=== PATIENT | female | born 1960 | race Caucasian/White ===

== ENCOUNTER 2020-11-10 15:49 | Emergency (ER) | payer SELFPAY ==
[2020-11-10] MEDS ORDERED: HYDROCODONE/ACETAMINOPHEN 5-325 MG TABLET PO ONE (18:28)
--- NOTE | 2020-11-10 19:02 | RADIOLOGY REPORT (SQ) ---
EXAM DESCRIPTION: ANKLE RIGHT COMPLETE IMAGES COMPLETED DATE/TIME: 11/10/2020 6:50 pm REASON FOR STUDY: injury COMPARISON: None. NUMBER OF VIEWS: Three views. TECHNIQUE: AP, lateral, and oblique radiographic images acquired of the right ankle. LIMITATIONS: None. FINDINGS: MINERALIZATION: Normal. BONES: No fracture or dislocation. Posterior and plantar calcaneal spurs. JOINTS: No effusions. SOFT TISSUES: No soft tissue swelling. No foreign body. OTHER: No other significant finding. IMPRESSION: Calcaneal spurs. No acute finding. TECHNICAL DOCUMENTATION: JOB ID: [id number] 2010 [employer]- All Rights Reserved Reading location - IP/workstation name: [email or web address]
--- NOTE | 2020-11-10 19:04 | RADIOLOGY REPORT (SQ) ---
EXAM DESCRIPTION: KNEE RIGHT 4 VIEWS IMAGES COMPLETED DATE/TIME: 11/10/2020 6:50 pm REASON FOR STUDY: injury COMPARISON: None. NUMBER OF VIEWS: Four views. TECHNIQUE: AP, lateral, and both oblique radiographic images acquired of the right knee. LIMITATIONS: None. FINDINGS: MINERALIZATION: Normal. BONES: No acute fracture or dislocation. No worrisome bone lesions. JOINT: Small posterior patellar spurs are present. No significant joint effusion. SOFT TISSUES: No soft tissue swelling. No radio-opaque foreign body. OTHER: No other significant finding. IMPRESSION: Mild patellofemoral degenerative joint changes. No acute finding. TECHNICAL DOCUMENTATION: JOB ID: [id number] 2010 [employer]- All Rights Reserved Reading location - IP/workstation name: [email or web address]
[2020-11-10 19:15] VITALS: BP 122/70
[2020-11-10] MEDS ORDERED: HYDROCODONE/ACETAMINOPHEN 5-325 MG (6 TAB/ER DISP) PO PRN (19:19)
--- NOTE | 2020-11-10 19:19 | ER Document Report ---
HPI - HPI Patient complains to provider of: Fall, right knee right ankle injury Time Seen by Provider: 11/10/20 18:21 Pain Level: 3 Context: 60-year-old female past medical history significant for ataxia, Mnire's, hypertension, diabetes, CHF, coronary artery disease, diverticulitis, DJD, DDD presents to the emergency room after a trip and fall off her back porch injuring her right knee and right ankle states happened earlier today. Denies any head trauma head injury. No loss consciousness. No history of previous trauma or injury to her ankle or knee. States unable to walk secondary to pain. Associated Symptoms: None Exacerbated by: Movement Relieved by: Denies Similar symptoms previously: No Recently seen / treated by doctor: No - ROS Systems Reviewed and Negative: Yes All other systems reviewed and negative - CONSTITUTIONAL Constitutional: DENIES: Fever, Chills - NEURO Neurology: DENIES: Headache, Weakness - REPRODUCTIVE Reproductive: DENIES: : - MUSCULOSKELETAL Musculoskeletal: REPORTS: Extremity pain. DENIES: Back Pain - DERM Skin Color: Normal Skin Problems: None Past Medical History - General Information source: Patient - Social History Smoking Status: Never Smoker Frequency of alcohol use: None Drug Abuse: None Family History: Reviewed & Not Pertinent Patient has homicidal ideation: No Vertical Provider Document - CONSTITUTIONAL Agree With Documented VS: Yes Exam Limitations: No Limitations General Appearance: Mild Distress - INFECTION CONTROL TRAVEL OUTSIDE OF THE [place] IN LAST 30 DAYS: No - HEENT HEENT: Atraumatic, Normocephalic - NECK Neck: Normal Inspection, Supple, Thyroid Normal - RESPIRATORY Respiratory: Breath Sounds Normal, No Respiratory Distress, Chest Non-Tender - CARDIOVASCULAR Cardiovascular: Regular Rate, Regular Rhythm, No Murmur - MUSCULOSKELETAL/EXTREMETIES Musculoskeletal/Extremeties: Tender - Tenderness on palpation to the right arreola lla. No ballottement, no obvious effusion noted. Patient with painful range of motion with flexion, and extension to the right knee. Negative anterior posterior draw. Negative Lexi's, negative Shahrzad's. Notes: Right ankle tenderness on palpation to the lateral and medial malleus. Painful range of motion with flexion, extension, eversion, inversion to the right ankle. Moderate swelling, no obvious deformity palpated. - NEURO Level of Consciousness: Awake, Alert, Appropriate Motor/Sensory: No Motor Deficit, No Sensory Deficit Notes: Positive right pedal pulse. Capillary refill less than 3 seconds. Gait not tested secondary to pain. - DERM Integumentary: Warm, Dry, No Rash Course - Re-evaluation Re-evalutation: 11/10/20 19:14 Patient is resting comfortably with decreased pain. Reviewed x-ray results with patient. Fractures were noted. Right knee x-ray shows degenerative joint disease, right ankle shows heel spurs but no acute fractures. No knee effusion. Counseled to rest, ice, elevate. Weightbearing as tolerated. Outpatient follow-up with orthopedics if not improving in 2 to 3 days. On-call physician was provided. Can take Tylenol and or Motrin as needed for pain. Crutches with crutch training as provided by nursing staff. Ice and Mode wrap applied to right ankle by nursing staff as documented. Patient was given strict return to the emergency room guidelines. Return for any new or worsening symptoms. All questions were answered. Patient verbalized understanding and agrees with plan of care. - Vital Signs Vital signs: Temp Pulse Resp BP Pulse Ox 98.7 F 93 20 125/77 98 11/10/20 15:58 11/10/20 15:58 11/10/20 15:58 11/10/20 15:58 11/10/20 15:58 - Laboratory Results Critical Laboratory Results Reviewed: No Critical Results - Radiology Results Critical Radiology Results Reviewed: No Critical Results Procedures - Immobilization Right Leg Time completed: 19:16 Pre-Proc Neuro Vasc Exam: Normal Immobilizer type: Mode wrap, Crutches Performed by: RN Post-Proc Neuro Vasc Exam: Normal Alignment checked and good: Yes Discharge - Discharge Clinical Impression: Fall Qualifiers: Encounter type: initial encounter Qualified Code(s): W19.XXXA - Unspecified fall, initial encounter Right knee injury Qualifiers: Encounter type: initial encounter Qualified Code(s): S89.91XA - Unspecified injury of right lower leg, initial encounter Right ankle injury Qualifiers: Encounter type: initial encounter Qualified Code(s): S99.911A - Unspecified injury of right ankle, initial encounter Degenerative joint disease of right knee Qualifiers: Osteoarthritis type: unspecified Qualified Code(s): M17.11 - Unilateral primary osteoarthritis, right knee Heel spur Qualifiers: Laterality: right Qualified Code(s): M77.31 - Calcaneal spur, right foot Condition: Stable Disposition: HOME, SELF-CARE Instructions: Use of Crutches ([facility]), Plantar Fasciitis or Heel Spur ([facility]), Sprained Ankle ([facility]), Sprained Knee ([facility]) Additional Instructions: Rest, ice, elevate right knee and right ankle. Use crutches weightbearing as tolerated. Tylenol and or Motrin as needed for pain. Outpatient follow-up with orthopedics if not improving in 2 to 3 days. Return to the emergency room for any new or worsening symptoms. Referrals: BALDO,DAMON [Primary Care Provider] - Follow up as needed JOLYNN BURCH DO [ACTIVE STAFF] - Follow up as needed
== END 2020-11-10 19:30 | disposition home or self-care (01) ==
LOC: ER 15:49
DX: S99.911A Unspecified injury of right ankle, initial encounter (principal); S89.91XA Unspecified injury of right lower leg, initial encounter; W17.89XA Other fall from one level to another, initial encounter; M77.31 Calcaneal spur, right foot; M17.11 Unilateral primary osteoarthritis, right knee; I10 Essential (primary) hypertension; E11.9 Type 2 diabetes mellitus without complications; I25.10 Atherosclerotic heart disease of native coronary artery without angina pectoris
CPT/HCPCS: 99283